=== PATIENT | male | born 1990 | race Caucasian/White ===

== ENCOUNTER 2017-05-14 10:25 | Emergency (ER) | payer OTHER ==
[~2017-05-14] VITALS: Ht 165.1 cm; Wt 65.8 kg
[2017-05-14] MEDS ORDERED: IBUPROFEN 600600 M1 PO (12:44)
[2017-05-14] MEDS ORDERED: KEFLEX500 M1 PO (12:44)
[2017-05-14] MEDS ORDERED: HYDROCODONE-AP1 EAC6 PO (12:44)
== END 2017-05-14 13:26 | disposition home or self-care (01) ==
LOC: ER 10:25
DX: S61.411A Laceration without foreign body of right hand, initial encounter (principal); W31.89XA Contact with other specified machinery, initial encounter; Y93.89 Activity, other specified; Y92.89 Other specified places as the place of occurrence of the external cause; Y99.8 Other external cause status